=== PATIENT | female | born 1975 | race Caucasian/White ===

== ENCOUNTER 2020-08-15 22:02 | Emergency (ER) | payer OTHER ==
[~2020-08-15] VITALS: Ht 172.7 cm; Wt 141.1 kg
[2020-08-15 23:17] LABS: ABSOLUTE NEUTROPHILS 8.1 thou/uL (1.4-8.2); BASOPHILS 0.9 % (0.0-2.0); EOSINOPHILS 2.8 % (0.0-3.0); HEMATOCRIT 42.5 % (37.0-47.0); HEMOGLOBIN 14.6 gm/dL (12.0-15.0); LYMPHOCYTES 22.8 % (24.0-44.0); MCH 32.6 pg (26.0-34.0); MCHC 34.3 g/dL (28.0-37.0); MONOCYTES 6.9 % (1.0-8.0); PLATELET COUNT 250 thou/uL (150-400); POLYS 66.6 % (36.0-66.0); RBC 4.47 mil/uL (4.20-5.00); WBC 12.2 thou/uL (4.0-11.0)
[2020-08-15 23:21] LABS: CALCIUM 8.8 mg/dL (8.5-10.1); CREATININE 0.9 mg/dL (0.6-1.0)
[2020-08-15 23:23] LABS: POTASSIUM 3.9 mmol/L (3.5-5.1)
[2020-08-15 23:27] LABS: ALBUMIN 3.4 g/dL (3.4-5.0); DIRECT BILIRUBIN 0.1 mg/dL (<0.1-0.2); MAGNESIUM 1.4 mg/dL (1.8-2.4); TOTAL BILIRUBIN 0.5 mg/dL (0.2-1.0); TOTAL PROTEIN 6.8 g/dL (6.4-8.2)
[2020-08-15 23:50] LABS: URINE BILIRUBIN NEGATIVE (Negative); URINE BLOOD TRACE (Negative); URINE CLARITY SL CLOUDY; URINE COLOR YELLOW; URINE GLUCOSE-RANDOM* 3+ (Negative); URINE KETONES NEGATIVE (Negative); URINE NITRITE-REFLEX NEGATIVE (Negative); URINE PROTEIN (DIPSTICK) NEGATIVE (Negative); URINE SPECIFIC GRAVITY 1.025 (1.005-1.035); URINE UROBILINOGEN 0.2 E.U./dl (0.2-1.0)
[2020-08-15 23:51] LABS: URINE LEUKOCYTES-REFLEX 1+ (Negative)
[2020-08-16 00:04] LABS: BACTERIA-REFLEX 1-9 Few /HPF (None Seen); CASTS None Seen /LPF (None Seen); CRYSTALS None Seen /LPF (None Seen); MUCUS 0-3 Light strn/LPF (None Seen); SQUAMOUS 4-10 Moderate /LPF (0-3); URINE RBC 1-2 Rare /HPF (NONE SEEN)
[2020-08-16] MEDS ORDERED: LIDOCAINE35.44 GM MUCOUS MEM (03:28)
[2020-08-16] MEDS ORDERED: METFORMIN HCL500 MG PO (03:28)
[2020-08-16 04:22] VITALS: BP 128/82
== END 2020-08-16 04:22 | disposition home or self-care (01) ==
LOC: ER 22:02
PROVIDERS: Emergency Medicine
DX: E86.0 Dehydration (principal); E83.42 Hypomagnesemia; R11.0 Nausea; R21 Rash and other nonspecific skin eruption; R10.2 Pelvic and perineal pain; E11.9 Type 2 diabetes mellitus without complications